=== PATIENT | female | born 1950 | race Hispanic/Latino ===

== ENCOUNTER 2017-10-23 10:37 | Day surgery (SDC) | payer MEDICARE ==
[~2017-10-23 10:37] MED LIST: AK-Dilate ONE; IOPIDINE ONE; MYDRIACYL ONE
[2017-10-23 11:24] VITALS: BP 124/60
[2017-10-23] MEDS ORDERED: IOPIDINE OD ONE ×2 (11:24)
[2017-10-23] MEDS ORDERED: MYDRIACYL OD ONE ×2 (11:25)
[2017-10-23] MEDS ORDERED: AK-Dilate OD ONE (11:25)
== END 2017-10-23 12:40 | disposition home or self-care (01) ==
LOC: OR 10:37
PROVIDERS: ATTEND Ophthalmology
DX: H26.491 Other secondary cataract, right eye (principal); J44.9 Chronic obstructive pulmonary disease, unspecified; K21.9 Gastro-esophageal reflux disease without esophagitis; G43.909 Migraine, unspecified, not intractable, without status migrainosus; M19.90 Unspecified osteoarthritis, unspecified site; F17.200 Nicotine dependence, unspecified, uncomplicated; Z90.710 Acquired absence of both cervix and uterus